=== PATIENT | female | born 1965 | race African-American/Black ===

== ENCOUNTER 2017-09-25 14:31 | Emergency (ER) | payer OTHER ==
[~2017-09-25] VITALS: Ht 157.5 cm; Wt 83.9 kg
--- NOTE | 2017-09-25 15:57 | ED GENERAL ADULT ---
See Addendum History of Present Illness General Chief Complaint: Female Urogenital Problems Stated Complaint: PT STATES"INCONTNENT OF URINE, HOMLESS" ?UTI Source: patient Exam Limitations: no limitations Vital Signs & Intake/Output Vital Signs & Intake/Output Vital Signs Date Time Temp Pulse Resp B/P B/P Pulse O2 O2 Flow FiO2 Mean Ox Delivery Rate 09/25 1636 99.1 99 20 133/74 94 Room Air 09/25 1437 98.6 110 18 145/97 99 Room Air Allergies Coded Allergies: Penicillins (Severe, ANAPHYLAXIS 09/25/17) NSAIDS (Non-Steroidal Anti-Inflamma (Intermediate, UPSET STOMACH 09/25/17) Triage Note: PT TO ED FOR MULTIPLE ISSUES, REPORTING SHE IS HOMELESS, LIVING IN HER CAR AND BELIEVES SHE HAS A UTI - PT STATING SHE BECAME INCONTINENT 1 WEEK AGO, [facility] SEEN [facility] AND GIVEN PO ABX, REPORTING SHE STOPPED AND FELT BETTER BUT THIS MORNING FELT S/S OF UTI AGAIN. Triage Nurses Notes Reviewed? yes Onset: Abrupt Duration: day(s): Timing: recent history HPI: 09/25/17 8 pm 52-year-old female presents to the emergency department complaining of rash and dysuria. The patient states that she's had intermittent urinary incontinence and now has a rash in her groin. She says that this is happened to her approximately 3 months ago when she was seen in another ER took an antibiotic and the symptoms went away. She has a history of diabetes. She is currently homeless. She is been living in her car. She denies any fever or abdominal pain or chest pain. Past History Travel History Traveled to [place] past 21 day No Medical History Any Pertinent Medical History? see below for history Neurological: NONE EENT: NONE Cardiovascular: NONE Respiratory: NONE Gastrointestinal: NONE Hepatic: NONE Renal: NONE Musculoskeletal: CHRONIC BACK PAIN Psychiatric: NONE Endocrine: diabetes Blood Disorders: NONE Cancer(s): NONE Surgical History Surgical History: non-contributory Psychosocial History What is your primary language [place] Tobacco Use: Never used ETOH Use: denies use Illicit Drug Use: denies illicit drug use Family History Hx Contributory? No Review of Systems Review of Systems Constitutional: Reports: no symptoms. EENTM: Reports: no symptoms. Respiratory: Reports: no symptoms. Cardiovascular: Reports: no symptoms. GI: Denies: abdominal pain. Genitourinary: Reports: no symptoms. Musculoskeletal: Reports: no symptoms. Skin: Reports: see HPI. Neurological/Psychological: Reports: no symptoms. Hematologic/Endocrine: Reports: no symptoms. Immunologic/Allergic: Reports: no symptoms. Physical Exam Physical Exam General Appearance: alert, awake, anxious, moderate distress Head: atraumatic, normal appearance Eyes: Bilateral: normal appearance, PERRL, EOMI. Ears, Nose, Throat: normal pharynx, normal ENT inspection Neck: normal inspection, supple, full range of motion Respiratory: normal breath sounds, chest non-tender, no respiratory distress Cardiovascular: regular rate/rhythm Peripheral Pulses: 4+ radial (R), 4+ radial (L) Gastrointestinal: soft, non-tender Back: normal range of motion Extremities: normal inspection Neurologic/Psych: no motor/sensory deficits, awake, alert, oriented x 3 Skin: intact, normal color, warm/dry Comments: 09/25/17 The patient has no back pain or fever. Pelvic exam was negative for rectocele cystocele. She does have purulent dermatitis. She admits to dysuria and urinary incontinence consistent with prior UTI. She has no lower extremity weakness. Core Measures ACS in differential dx? No CVA/TIA Diagnosis: No Sepsis Present: No Sepsis Focused Exam Completed? No Progress Differential Diagnoses I considered the following diagnoses in my evaluation of the patient: [UTI, retrocecal, cystocele, uterine prolapse, epidural abscess] Plan of Care: Orders Procedure Date/time Status FingerStick- Glucose 09/25 2009 Active CULTURE,URINE 09/25 1713 Active URINALYSIS 09/25 1713 Complete Current Medications Sig/Mary Alice Start time Last Medication Dose Stop Time Status Admin Nystatin 1 SARATH BID 09/25 2199 UNVr (Mycostatin) Ciprofloxacin 500 MG ONCE ONE 09/25 2030 UNVr (Cipro) 09/25 2031 Laboratory Tests 09/25/17 1800: Urinalysis LIGHT H, Urine Color YEL, Urine Clarity HAZY H, Urine pH 6.0, Ur Specific [place] >= 1.030, Urine Protein TRACE H, Urine Ketones NEG, Urine Nitrite NEG, Urine Bilirubin NEG, Urine Urobilinogen 0.2, Ur Leukocyte Esterase NEG, Ur Microscopic SEDIMENT EXAMINED, Urine RBC 1-3, Urine WBC 1-3 H, Ur Epithelial Cells MOD H, Urine Bacteria FEW H, Hyaline Casts 3-5 H, Urine Mucus FEW, Urine Hemoglobin TRACE-INTACT, Urine Glucose >=1000 H Microbiology 09/25 1800 URINE ROUT: Urine Culture - RECD Initial ED EKG: none Departure Departure Disposition: HOME OR SELF CARE Condition: Stable Clinical Impression Primary Impression: Irritant dermatitis Secondary Impressions: Urinary incontinence, UTI (urinary tract infection) Referrals: Unknown (PCP/Family) Departure Forms: Customer Survey General Discharge Information Comments 09/25/17 The patient's fingerstick is less than 200. She was given a meal tray. She has her meds in her car. She's been living out of her car next to her son's house. She is been working as a ems driver. She was given referral to licensed social worker and also given follow-up with [employer]. She denies IV drug use ever. No fever. Critical Care Note Critical Care Note Critical Care Time: non-applicable
[2017-09-25] MEDS ORDERED: LOTRISONE CREAM15 G1 TOP (20:35)
[2017-09-25] MEDS ORDERED: CIPRO500 M1 PO (20:35)
[2017-09-25 20:45] VITALS: BP 153/82
== END 2017-09-25 20:52 ==
LOC: ERH 14:31
DX: L30.9 Dermatitis, unspecified (principal); R32 Unspecified urinary incontinence; N39.0 Urinary tract infection, site not specified
CPT/HCPCS: 81001; 87086